=== PATIENT | male | born 1935 | race African-American/Black ===

== ENCOUNTER 2021-04-28 12:42 | Emergency (ER) | payer SELFPAY ==
[2021-04-28 13:15] VITALS: BP 158/74; PULSE 78; TEMP 98.4; BMI 28.3
== END 2021-04-28 15:08 | disposition home or self-care (01) ==
LOC: JER 12:42
DX: B34.9 Viral infection, unspecified (principal)
CPT/HCPCS: 71046-TC-FY; 99284-25; C9803; U0003; U0005

== ENCOUNTER 2021-04-29 17:57 | Emergency (ER) | payer SELFPAY ==
[2021-04-29] MEDS ORDERED: CASIRIVIMAB/IMDEVIMAB 10 ML in SODIUM CHLORIDE 100 ML IVPB ONE (18:04)
[2021-04-29 18:27] VITALS: TEMP 98.7; BMI 29.2
[2021-04-29] MEDS ORDERED: SODIUM CHLORIDE 1,000 ML IV STA (18:52)
[2021-04-29 20:38] VITALS: BP 110/71; PULSE 74
== END 2021-04-29 20:46 | disposition home or self-care (01) ==
LOC: JER 17:57
PROC: 3E033GC Introduction of Other Therapeutic Substance into Peripheral Vein, Percutaneous Approach (ICD-10-PCS; principal; 2021-04-29)
DX: U07.1 COVID-19 (principal)
CPT/HCPCS: 99284-25; M0240; Q0240